=== PATIENT | male | born 1960 | race Two or more races ===

== ENCOUNTER 2017-05-01 10:50 | Emergency (ER) | payer OTHER ==
[2017-05-01 11:03] VITALS: BP 143/87; PULSE 88; TEMP 98.3; BMI 24.2
[2017-05-01] MEDS ORDERED: SODIUM CHLORIDE 2,000 ML IV STA (11:05)
[2017-05-01] MEDS ORDERED: ONDANSETRON 4 MG/2 ML VIAL IVPUSH ONE (11:05)
[2017-05-01] MEDS ORDERED: ACETAMINOPHEN 325 MG TABLET (FP) PO ONE (11:05)
[2017-05-01] MEDS ORDERED: MAG HYDROX/AL HYDROX/SIMETH 30 ML UNIT-DOSE CUP PO ONE (11:05)
[2017-05-01] MEDS ORDERED: FAMOTIDINE IV 20 MG/12 ML VIAL IVPUSH SCH (11:15)
[2017-05-01] MEDS ORDERED: ONDANSETRON 4 MG/2 ML VIAL ONE (11:18)
[2017-05-01] MEDS ORDERED: FAMOTIDINE 20 MG/50 ML IVPB 20 MG/50 ML MG IVPB ONE (11:18)
[2017-05-01] MEDS ORDERED: ACETAMINOPHEN 325 MG TABLET (FP) ONE (11:18)
[2017-05-01] MEDS ORDERED: MAG HYDROX/AL HYDROX/SIMETH 30 ML UNIT-DOSE CUP ONE (11:18)
[2017-05-01 11:30] LABS: BASOPHIL 2.5 % (0-2.0); EOSINOPHIL 0.1 % (0-4.5); MCH 27.4 pg (25.7-33.7); MCHC 32.8 g/dl (32.0-35.9); MEAN CELL VOLUME 83.6 fl (80-96); MEAN PLT VOLUME 9.1 fl (7.5-11.1); NEUTROPHILS 88.5 % (42.8-82.8); PLATELET COUNT 204 K/MM3 (134-434); RDW 13.5 % (11.9-15.9); WHITE BLOOD COUNT 10.6 K/mm3 (4.0-10.8)
--- NOTE | 2017-05-01 11:32 | PDOC ---
History of Present Illness - General Chief Complaint: Vomiting/Diarrhea Stated Complaint: NAUSEA, VOMITING, DIARRHEA Time Seen by Provider: 05/01/17 11:02 History Source: Patient, Family Exam Limitations: No Limitations - History of Present Illness Initial Comments: 05/01/17 11:46 56-year-old male with past medical history of hypertension, hyperlipidemia presents with several episodes of nausea, vomiting, diarrhea since 3:00 this morning. The patient reported eating a [employer] sandwich yesterday. Was otherwise well. Woke up this morning with heartburn, multiple episodes of vomiting, multiple episodes of diarrhea but no abdominal pain or fevers. Denies sick contacts or recent travels. States that he attempted to take Pedialyte but was unable to tolerate by mouth. He started feel generally weak and was brought in by son for an evaluation. Past History - Past Medical History Allergies/Adverse Reactions: Allergies Allergy/AdvReac Type Severity Reaction Status Date / Time No Known Allergies Allergy Verified 05/01/17 10:58 Home Medications: Ambulatory Orders Aspirin Coated [Ecotrin -] 81 mg PO HS 05/01/17 Atorvastatin Ca [Lipitor] 20 mg PO HS 05/01/17 Famotidine [Pepcid] 20 mg PO BID PRN #14 tablet 05/01/17 Mag Hydrox/Al Hydrox/Simeth [Mylanta Suspension -] 30 ml PO Q6H PRN #1 bottle Ondansetron HCl [Zofran] 4 mg PO Q8H PRN #12 tablet 05/01/17 CVA: Yes (TIA) COPD: No HTN: Yes Hypercholesterolemia: Yes Psychiatric Problems: Yes (PANIC ATTACKS) - Suicide/Smoking/Psychosocial Hx Smoking History: Current some day smoker Number of Cigarettes Smoked Daily: 1 Information on smoking cessation initiated: Yes 'Breaking Loose' booklet given: 05/01/17 Hx Alcohol Use: No Drug/Substance Use Hx: No Substance Use Type: None Review of Systems - Review of Systems Able to Perform ROS?: Yes Comments:: 05/01/17 11:49 GENERAL/CONSTITUTIONAL: No fever, weakness. HEAD, EYES, EARS, NOSE AND THROAT: No change in vision. No ear pain or discharge. No sore throat. CARDIOVASCULAR: No chest pain or shortness of breath. RESPIRATORY: No cough, wheezing, or hemoptysis. GASTROINTESTINAL: No abdominal pain. + nausea, vomiting, diarrhea, or decreased PO intolerance. GENITOURINARY: No dysuria, frequency, or change in urination. MUSCULOSKELETAL: No joint or muscle swelling or pain. No neck or back pain. SKIN: No rash NEUROLOGIC: No headache, vertigo, loss of consciousness, or change in strength/ sensation. ENDOCRINE: No increased thirst. No abnormal weight change. HEMATOLOGIC/LYMPHATIC: No anemia, easy bleeding, or history of blood clots. ALLERGIC/IMMUNOLOGIC: No hives or skin allergy. *Physical Exam - Vital Signs Last Vital Signs Temp Pulse Resp BP Pulse Ox 98.3 F 88 16 143/87 98 05/01/17 10:57 05/01/17 10:57 05/01/17 10:57 05/01/17 10:57 05/01/17 10:57 - Physical Exam Comments: 05/01/17 11:49 GENERAL: Awake, alert, and fully oriented, in no acute distress. HEAD: No signs of trauma EYES: PERRLA, EOMI, sclera anicteric, conjunctiva clear ENT: Auricles normal inspection, hearing grossly normal, nares patent, oropharynx clear without exudates. NECK: Normal ROM, supple, no lymphadenopathy, JVD, or masses LUNGS: Breath sounds equal, clear to auscultation bilaterally. No wheezes, and no crackles HEART: Regular rate and rhythm, normal S1 and S2, no murmurs, rubs or gallops ABDOMEN: +TTP epigastric. Negative rivera sign. Soft,normoactive bowel sounds. No guarding, no rebound. No masses EXTREMITIES: Normal range of motion, no edema. No clubbing or cyanosis. No cords, erythema, or tenderness NEUROLOGICAL: Cranial nerves II through XII grossly intact. Normal speech, normal gait SKIN: Warm, Dry, normal turgor, no rashes or lesions noted. Heart Score/ECG Review #1 ECG reviewed & interpreted by me at: 11:00 05/01/17 12:42 NSR 100, no std/shyann, TWI III, QTC 433 msec ED Treatment Course - LABORATORY CBC & Chemistry Diagram: 05/01/17 11:10 05/01/17 11:10 Medical Decision Making - Medical Decision Making 05/01/17 11:49 Vital Signs Temp Pulse Resp BP Pulse Ox 98.3 F 88 16 143/87 98 05/01/17 10:57 05/01/17 10:57 05/01/17 10:57 05/01/17 10:57 05/01/17 10:57 Patient likely has food poisoning versus gastroenteritis. Labs, symptom control , IV fluids and reassess. 05/01/17 13:11 CBC, BMP 05/01/17 11:10 05/01/17 11:10 CMP Sodium 136 mmol/L (136-145) 05/01/17 11:10 Potassium 4.1 mmol/L (3.5-5.1) 05/01/17 11:10 Chloride 106 mmol/L (98-107) 05/01/17 11:10 Carbon Dioxide 21 mmol/L (22-28) L 05/01/17 11:10 Anion Gap 9 (8-16) 05/01/17 11:10 BUN 21 mg/dl (7-18) H 05/01/17 11:10 Creatinine 0.9 mg/dl (0.6-1.3) 05/01/17 11:10 Creat Clearance w eGFR > 60 (>60) 05/01/17 11:10 Random Glucose 121 mg/dl (74-106) H 05/01/17 11:10 Calcium 8.9 mg/dl (8.4-10.2) 05/01/17 11:10 Total Bilirubin 0.5 mg/dl (0.2-1.0) 05/01/17 11:10 AST 33 U/L (10-42) 05/01/17 11:10 ALT 43 U/L (10-40) H 05/01/17 11:10 Alkaline Phosphatase 86 U/L (32-92) 05/01/17 11:10 Troponin I < 0.03 ng/ml (0.03-0.50) L 05/01/17 11:10 Total Protein 7.2 g/dl (6.4-8.3) 05/01/17 11:10 Albumin 4.2 g/dl (3.5-5.0) 05/01/17 11:10 Lipase 31 U/L (22-51) 05/01/17 11:10 Urine Test Results Urine Color Yellow 05/01/17 12:45 Urine Appearance Clear 05/01/17 12:45 Urine pH 6.0 (4.5-8) 05/01/17 12:45 Ur Specific Raymond <= 1.005 (1.005-1.025) 05/01/17 12:45 Urine Protein Negative (NEGATIVE) 05/01/17 12:45 Urine Glucose (UA) Negative (NEGATIVE) 05/01/17 12:45 Urine Ketones Negative (NEGATIVE) 05/01/17 12:45 Urine Blood Trace-intact (NEGATIVE) H 05/01/17 12:45 Urine Nitrite Negative (NEGATIVE) 05/01/17 12:45 Urine Bilirubin Negative (NEGATIVE) 05/01/17 12:45 Ur Leukocyte Esterase Negative (NEGATIVE) 05/01/17 12:45 The patient reports feeling significantly better. He reports feeling well and not nauseous and that the IV fluids have helped significantly. Again, I suspect this may be gastroenteritis versus food poisoning. Supportive care. Return precautions given. Patient would like to go home. I discussed the physical exam findings, ancillary test results and final diagnoses with the patient. I answered all of the patient's questions. The patient was satisfied with the care received and felt comfortable with the discharge plan and treatment plan. The patient will call their primary care physician within 24 hours to arrange follow-up and will return to the Emergency Department with any new, persistant or worsening symptoms. *DC/Admit/Observation/Transfer Diagnosis at time of Disposition: Gastroenteritis - Discharge Dispostion Disposition: HOME Condition at time of disposition: Improved Admit: No - Prescriptions Prescriptions: Famotidine [Pepcid] 20 mg PO BID PRN #14 tablet PRN Reason: Abdominal Pain Mag Hydrox/Al Hydrox/Simeth [Mylanta Suspension -] 30 ml PO Q6H PRN #1 bottle PRN Reason: Abdominal Pain Ondansetron HCl [Zofran] 4 mg PO Q8H PRN #12 tablet PRN Reason: Nausea - Referrals Referrals: Alpesh José MD [Primary Care Provider] - - Patient Instructions Printed Discharge Instructions: DI for Viral Gastroenteritis -- Adult Additional Instructions: Your blood work is unremarkable. Drink plenty of fluids and rest. It may take a day or two before your symptoms improve. Follow up with your doctor. Take the medications as prescribed as needed. - Post Discharge Activity
[2017-05-01 11:55] LABS: ALBUMIN 4.2 g/dl (3.5-5.0); ALK PHOS 86 U/L (32-92); ANION GAP 9 (8-16); BILIRUBIN,TOTAL 0.5 mg/dl (0.2-1.0); CALCIUM 8.9 mg/dl (8.4-10.2); CO2 21 mmol/L (22-28); CREATININE 0.9 mg/dl (0.6-1.3); GLUCOSE,RANDOM 121 mg/dl (74-106); SGOT/AST 33 U/L (10-42); SGPT/ALT 43 U/L (10-40); TOT PROT 7.2 g/dl (6.4-8.3)
[2017-05-01 12:55] LABS: URINE APPEARANCE Clear; URINE BILIRUBIN Negative (NEGATIVE); URINE GLUCOSE (UA) Negative (NEGATIVE); URINE KETONE Negative (NEGATIVE); URINE LEUK ESTERASE Negative (NEGATIVE); URINE NITRITE Negative (NEGATIVE); URINE PROTEIN Negative (NEGATIVE); URINE UROBILINOGEN 0.2 (0.2-1.0)
[2017-05-01 12:57] LABS: URINE BLOOD Trace-intact (NEGATIVE); URINE COLOR YELLOW
[2017-05-01 13:22] LABS: URINE WBC 0-3 (0-2)
--- NOTE | 2017-05-03 20:20 | EKG ---
Test Reason : Blood Pressure : / mmHG Vent. Rate : 100 BPM Atrial Rate : 100 BPM P-R Int : 154 ms QRS Dur : 092 ms QT Int : 336 ms P-R-T Axes : 060 074 042 degrees QTc Int : 433 ms NORMAL SINUS RHYTHM NONSPECIFIC ST ABNORMALITY ABNORMAL ECG NO PREVIOUS ECGS AVAILABLE Confirmed by MARCELINO GRAJEDA MD ([id number] on 05/03/2017 8:19:58 PM Referred By: ELIZA Confirmed By:MARCELINO GRAJEDA MD
== END 2017-05-01 13:33 | disposition home or self-care (01) ==
LOC: FER 10:50
PROC: 3E033GC Introduction of Other Therapeutic Substance into Peripheral Vein, Percutaneous Approach (ICD-10-PCS; principal; 2017-05-01)
PROC: 3E0337Z Introduction of Electrolytic and Water Balance Substance into Peripheral Vein, Percutaneous Approach (ICD-10-PCS; 2017-05-01)
DX: K52.9 Noninfective gastroenteritis and colitis, unspecified (principal); I10 Essential (primary) hypertension; E78.5 Hyperlipidemia, unspecified; F41.0 Panic disorder [episodic paroxysmal anxiety]; Z86.73 Personal history of transient ischemic attack (TIA), and cerebral infarction without residual deficits; F17.210 Nicotine dependence, cigarettes, uncomplicated
CPT/HCPCS: 36415; 80053; 81003; 81015; 83690; 84484; 85025; 93005; 99283-25